=== PATIENT | male | born 1995 | race Caucasian/White ===

== ENCOUNTER 2019-09-13 21:46 | Emergency (ER) | payer OTHER, SELFPAY ==
[2019-09-13 21:55] VITALS: BP 138/96; PULSE 104; RESP 178; TEMP 36.9; O2SAT 98; BMI 33.9
--- NOTE | 2019-09-13 22:42 | XR_ITS ---
WS: [id number] XR chest 1V portable [id number] REASON FOR EXAM: cough/congestion FINDINGS: The heart and mediastinal interfaces normal. The lung mcclelland are well aerated. No pneumonia, pleural effusion, pulmonary edema, or mass effect. The hilum and apices normal. No osseous abnormalities. XR/XR chest 1V portable [id number] IMPRESSION: Negative chest for active pathology.
--- NOTE | 2019-09-13 23:29 | W.ED.GENADLT ---
HPI - General Adult General: Chief complaint: Recheck/Abnormal Lab/Rx Stated complaint: suspected lyles virus Time Seen by Provider: 09/13/19 22:42 Source: patient Mode of arrival: ambulatory Limitations: no limitations History of Present Illness: HPI narrative: Patient is a 24-year-old male who presents to ED today stating he wants tested for lyles virus. 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 Patient currently has absolutely zero symptoms. States he was only here because he was told to get tested. Onset (ago): day(s) Relieving factors: none Exacerbating factors: none Associated symptoms: Reports no associated symptoms Review of Systems General: Reports: 10 or more systems reviewed and unremarkable except in HPI and below Physical Exam Const: COMMON NORMALS: no apparent distress, average body habitus, oriented x3, no limitations, healthy appearing, alert and well nourished HENMT: COMMON NORMALS: normocephalic, head/scalp atraumatic, hearing grossly normal bilaterally, external ears normal, EAC's normal, TM's normal bilaterally, external nose normal, nasal mucous membranes and turbinates normal, moist oral mucous membranes, oropharynx normal, dentition normal and gingiva normal HEAD & SCALP: normocephalic and atraumatic NOSE: external nose normal and nasal mucous membranes and turbinates normal EXTERNAL EAR: Yes external ears normal EXTERNAL AUDITORY CANAL: EAC's normal TYMPANIC MEMBRANE: TM's normal bilaterally Neck/C-Spine: COMMON NORMALS: no lymphadenopathy Resp: COMMON NORMALS: normal respiratory effort and clear to auscultation bilaterally AUSCULTATION: clear to auscultation bilaterally Cardio: COMMON NORMALS: regular rate and regular rhythm RATE: regular rate RHYTHM: regular rhythm Neuro: COMMON NORMALS: oriented x3 SENSORIUM/ORIENTATION: Yes alert Course Vital Signs: Vital signs: Vital Signs Temperature 97.5 F L 09/13/19 23:52 Pulse Rate 100 09/13/19 23:52 Respiratory Rate 19 H 09/13/19 23:52 Blood Pressure 132/75 09/13/19 23:52 Pulse Oximetry 93 09/13/19 23:52 MDM - General Adult MDM Narrative: Medical decision making narrative: Patient has absolutely no symptoms currently. He has no known positive COVID-19 exposure. Patient does not meet CDC guidelines for testing at this time. Recommend he self quarantine until the other individual hears from his testing results. If individual ends up testing positive then the patient will most likely require testing at that time. 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
[2019-09-13 23:50] VITALS: BP 132/75; PULSE 100; RESP 19; TEMP 36.4; O2SAT 93
[2019-09-13 23:52] VITALS: BP 132/75; PULSE 100; RESP 19; TEMP 36.4; O2SAT 93
== END 2019-09-13 23:53 | disposition home or self-care (01) ==
LOC: ER 23:42
PROVIDERS: Emergency Provider Physician Assistant; Family Provider Pediatrics Adolescent Medicine; PCP Family Medicine
DX: Z03.89 Encounter for observation for other suspected diseases and conditions ruled out (principal)
CPT/HCPCS: 12345; 71045; 99281; 99282

== ENCOUNTER → 2021-07-05 11:02 | Outpatient (BNVA) | payer OTHER, SELFPAY | PROVIDERS: Family Provider Pediatrics Adolescent Medicine; Visit Provider Nurse Practitioner Family | DX: Z20.822 Contact with and (suspected) exposure to COVID-19 (principal); J06.9 Acute upper respiratory infection, unspecified | CPT/HCPCS: 87635 ==

== ENCOUNTER → 2021-11-01 09:28 | Outpatient (BNVA) | payer OTHER, SELFPAY | PROVIDERS: Family Provider Pediatrics Adolescent Medicine; Visit Provider Nurse Practitioner Family | DX: R73.9 Hyperglycemia, unspecified (principal) | CPT/HCPCS: 83036 ==

== ENCOUNTER 2024-08-11 08:26 | Outpatient (CLI) | payer OTHER, SELFPAY ==
--- NOTE | 2024-08-11 08:28 | XR_ITS ---
WS: [id number] XR chest 2V* [id number] REASON FOR EXAM: 2 months for productive cough and mild shortness of breath FINDINGS: The heart and mediastinum are within normal limits. 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 Compared to a previous normal examination of 09/13/2019, is an area of vague opacity adjacent to the right heart border on the AP and in the mid right lower lobe on the lateral. This opacity associated with peribronchial cuffing. On the lateral view the appearance is more indicative of atelectasis. The left lung field remains clear and unchanged compared to 09/13/2019. The bony thorax is intact without significant abnormality. XR/XR chest 2V* [id number] IMPRESSION: Area of abnormality in the right lung which appears to be atelectasis and possi cherry small airway inflammatory change. The chronicity of this abnormality is unk nown. This could represent a subacute inflammatory process. Recommend repeat ex amination in 7 to 10 days.
== END 2024-08-11 08:27 | disposition home or self-care (01) ==
LOC: RAD 08:27
PROVIDERS: Visit Provider Emergency Medicine
DX: J40 Bronchitis, not specified as acute or chronic (principal); R91.8 Other nonspecific abnormal finding of lung field; D71 Functional disorders of polymorphonuclear neutrophils
CPT/HCPCS: 71046

== ENCOUNTER 2024-08-24 08:30 | Outpatient (CLI) | payer OTHER, SELFPAY ==
--- NOTE | 2024-08-24 08:32 | XRR_ITS ---
PROCEDURE INFORMATION: Exam: XR Chest Exam date and time: 08/24/2024 8:41 AM Age: 29 years old Clinical indication: Check of status of bronchitis, patient states 2 months of sob/coughing/phlegm; Additional info: Follow up from abnormal cxr. TECHNIQUE: Imaging protocol: Radiologic exam of the chest. Views: 2 views. COMPARISON: CR XR chest 2V* [id number] 08/11/2024 8:38 AM FINDINGS: Lungs: The pulmonary vessels are within normal limits. The lungs are clear. Pleural spaces: No pneumothorax. Heart/Mediastinum: The cardiomediastinal silhouette is within normal limits. Bones/joints: Osseous structure is unremarkable. XR/XR chest 2V* [id number] IMPRESSION: No acute pulmonary finding.
== END 2024-08-24 08:31 | disposition home or self-care (01) ==
LOC: RAD 08:31
PROVIDERS: Visit Provider Emergency Medicine
DX: J40 Bronchitis, not specified as acute or chronic (principal)
CPT/HCPCS: 71046